=== PATIENT | male | born 1960 | race Caucasian/White ===

== ENCOUNTER 2017-01-13 09:32 | Day surgery (SDC) | payer OTHER, MEDICARE ==
[2017-01-13 10:11] LABS: HEMOGLOBIN 14.6 g/dL (14.1-18.0); LYMPH # 3.1 K/mm3 (0.7-4.5); LYMPH % 33.8 % (10-50)
[2017-01-13 10:20] LABS: BUN 22 mg/dL (7-18)
[2017-01-13 10:22] LABS: GFR (ESTIMATED) 69 ML/MIN (>60)
--- NOTE | 2017-01-13 15:50 | RADIOLOGY REPORT PS360 ---
CARDIAC CATHETERIZATION DATE OF CATHETERIZATION:01/13/2017 2:37 PM PROCEDURES: 1. Catheter placement in the right vertebral artery 2. Right vertebral artery angiogram 3. Catheter placement in the right common carotid artery 4. Right carotid artery angiogram 5. Catheter placement in the left common carotid artery 6. Left internal carotid artery angiogram 7. Left intracerebral carotid artery angiogram INDICATION FOR TEST: 1. Right internal carotid artery stenosis/occlusion 2. Severe left internal carotid artery disease 3. Preoperative evaluation for up coming carotid endarterectomy Informed consent was obtained prior to the procedure. COMPLICATIONS: None ESTIMATED BLOOD LOSS: Less than 10 ml. TECHNIQUE: One percent lidocaine was used to anesthetize the right groin. The right femoral artery was accessed via the Seldinger technique. A 4-Divehi sheath was placed in the right femoral artery. The JR4 catheter was used to select the right vertebral artery and the bilateral carotid arteries. Angiography was performed. In the procedure the apparatus was removed the sheath removed good hemostasis achieved using manual pressure patient transferred to the postop holding area in stable condition. Patient remained awake and tolerated the procedure well. ANGIOGRAPHIC RESULTS: 1. Right vertebral artery is a widely patent vessel free of atherosclerotic plaque 2. The right common carotid artery has mild atheromatous plaque while the right internal carotid artery is ostially occluded 3. The left common carotid artery has mild atheromatous plaque while the left internal carotid artery has a proximal complex 70% stenosis. Intracerebral vasculature is widely patent free of atherosclerotic disease or aneurysmal dilatation. There is collateralization supplying the right cerebrum 4. The left vertebral was not angiographically evaluated IMPRESSION: 1. Chronically occluded right internal carotid artery 2. Severe disease in the proximal left internal carotid artery supplying both the right and left hemispheres 3. Widely patent] right vertebral artery PLAN: 1. LDL less than 55 2. Addition of dual antiplatelet therapy aspirin Plavix 3. Patient will be referred to Dr. Ward for evaluation of left carotid endarterectomy.
[2017-01-13 18:09] VITALS: BP 159/75
== END 2017-01-13 18:19 | disposition home or self-care (01) ==
LOC: SDC 09:32
PROVIDERS: Internal Medicine
PROC: B31R1ZZ Fluoroscopy of Intracranial Arteries using Low Osmolar Contrast (ICD-10-PCS; 2017-01-13)
PROC: B3171ZZ Fluoroscopy of Left Internal Carotid Artery using Low Osmolar Contrast (ICD-10-PCS; 2017-01-13)
PROC: B31D1ZZ Fluoroscopy of Right Vertebral Artery using Low Osmolar Contrast (ICD-10-PCS; 2017-01-13)
PROC: B3151ZZ Fluoroscopy of Bilateral Common Carotid Arteries using Low Osmolar Contrast (ICD-10-PCS; principal; 2017-01-13 08:30)
DX: I65.23 Occlusion and stenosis of bilateral carotid arteries (principal); I25.10 Atherosclerotic heart disease of native coronary artery without angina pectoris
CPT/HCPCS: C1725; C1769; J1644; Q9967